=== PATIENT | female | born 2000 ===

== ENCOUNTER 2021-02-21 17:09 | Emergency (ER) | payer BC ==
--- NOTE | 2021-02-21 17:51 | EDM.PDOC ---
ED HPI GENERAL MEDICAL PROBLEM - General Chief Complaint: Eye Problems Stated Complaint: EYE PROBLEM Time Seen by Provider: 02/21/21 17:15 Source of Information: Reports: Patient History Limitations: Reports: No Limitations - History of Present Illness INITIAL COMMENTS - FREE TEXT/NARRATIVE: patient presented to the ER with a c/o left eye irritation. She reports it occurred 2-3 hrs ago while she was outdoors. Reports sudden onset of irritation, cant open her eyes and feeling scratchy in her left eye. She admits that some people around here were cutting down some trees. no fever or chills Onset: Sudden Duration: Hour(s): (2.5) ED ROS GENERAL - Review of Systems Review Of Systems: See Below Constitutional: Reports: No Symptoms Respiratory: Reports: Other (h/o asthma) Cardiovascular: Reports: No Symptoms Musculoskeletal: Reports: No Symptoms Skin: Reports: No Symptoms Neurological: Reports: No Symptoms Psychiatric: Reports: Anxiety ED EXAM GENERAL W FULL EYE - Physical Exam Exam: See Below Exam Limited By: No Limitations General Appearance: Alert, WD/WN, No Apparent Distress Eye Exam: Bilateral Eye: EOMI, PERRL Eyelids: Left: Edema Conjunctiva & Sclera: Bilateral: Normal Appearance Cornea Exam: Left: Examined with Flourescein, Other (there a central superficial corneal pinpoint scratch/wound, around 1 mm) Extraocular Movements: Bilateral: Intact Pupils: Normal Accommodation Pupillary Size: Bilateral: 2 mm Head: Atraumatic Respiratory/Chest: No Respiratory Distress Cardiovascular: Normal Peripheral Pulses Extremities: Normal Inspection Neurological: Alert, Oriented, No Motor/Sensory Deficits Psychiatric: Normal Affect ED EYE w/ Add Procedure - Eye Procedure Alcaine Drops Administered: Yes Eye FB Removal: Other (no FB seen) Eye Irrigated w/ Saline (ccs): 2 Antibiotic Oinment/Drps Admin: Left Eye Progress: eye was washed and cleaned. - Additional/Other Procedure(s) Other (Free Text) Procedure(s) [Text1]: no FB seen, but a small corneal abrasion. eye was washed and cleaned. Gentamicin drop was administered and a bottle was given to the patient. Tdap was administered as well Course - Re-Assessments/Exams Free Text/Narrative Re-Assessment/Exam: 02/21/21 17:56 eye was washed and cleaned fluorescent exam treatment was administered reports she feels much better and able to open here eyes and look around Departure - Departure Time of Disposition: 17:57 Disposition: Home, Self-Care 01 Condition: Good Clinical Impression: Corneal abrasion - Discharge Information *PRESCRIPTION DRUG MONITORING PROGRAM REVIEWED*: Not Applicable *COPY OF PRESCRIPTION DRUG MONITORING REPORT IN PATIENT DEANA: Not Applicable Instructions: Corneal Abrasion, [id number] - Problem List & Annotations (1) Corneal abrasion SNOMED Code(s): 12039850 Code(s): S05.00XA - INJ CONJUNCTIVA AND CORNEAL ABRASION W/O FB, UNSP EYE, INIT Status: Acute Priority: Low Qualifiers: Encounter type: initial encounter Laterality: left Qualified Code(s): S05.02XA - Injury of conjunctiva and corneal abrasion without foreign body, left eye, initial encounter - Problem List Review Problem List Initiated/Reviewed/Updated: Yes - Assessment/Plan Plan: - use antibiotics eye drops on the affected eye as per instructions ( 1-2 drops every 6-8 hrs for at least 5 days - 7 days ). - return to the ER if symptoms got worse or any concerns. - follow up with your PCP in 1-2 weeks as needed - tylenol for pain as needed
[2021-02-21] MEDS: Ketorolac 60 MG/2 ML SDV IM ONE (18:05)
[2021-02-21] MEDS: Diphtheria,Pertussis(Acell),Tetanus Vaccine 0.5 ML SDV IM ONE (18:07)
[2021-02-21] MEDS: Gentamicin 0.3% Ophth Soln 5 ML Bottle EYELF SCH (20:00)
[2021-02-21] MEDS: Tetracaine HCl/PF 0.5% 4 ML Bottle EYELF ONE (20:00)
== END 2021-02-21 18:25 | disposition home or self-care (01) ==
LOC: LB.ED 17:09
DX: S05.02XA Injury of conjunctiva and corneal abrasion without foreign body, left eye, initial encounter (principal); Z23 Encounter for immunization
CPT/HCPCS: 90471; 90715; 96372; 99283; J1885